=== PATIENT | female | born 1965 | race Two or more races ===

== ENCOUNTER 2024-10-08 18:58 | Emergency (ER) | payer OTHER ==
[~2024-10-08] VITALS: Ht 157.5 cm; Wt 75.0 kg
[2024-10-08 18:59] VITALS: BP 125/73; PULSE 73; RESP 18; TEMP 98.5; O2SAT 97
[2024-10-08] MEDS ORDERED: MELO-108 PO (19:02)
[2024-10-08] MEDS ORDERED: SIMV-46 PO (19:02)
[2024-10-08] MEDS ORDERED: LORA10TA7 PO (19:02)
[2024-10-08] MEDS ORDERED: OMEP20CA12 PO (19:02)
[2024-10-08] MEDS ORDERED: METH-659 PO (20:02)
[2024-10-08] MEDS ORDERED: LABETALOL HCL 200 MG TABLET PO ONE (20:15)
[2024-10-08] MEDS: LIDOCAINE 5% TRANSDERMAL PATCH TD ONE (20:27)
== END 2024-10-08 20:38 | disposition home or self-care (01) ==
LOC: EMS 19:14
DX: M54.50 Low back pain, unspecified (principal); E78.00 Pure hypercholesterolemia, unspecified; Z98.51 Tubal ligation status; Z79.899 Other long term (current) drug therapy
CPT/HCPCS: 99283